=== PATIENT | female | born 1970 | race Two or more races ===

== ENCOUNTER 2024-01-17 11:49 | Emergency (ER) | payer MEDICAID, SELFPAY ==
[2024-01-17 12:07] VITALS: BP 153/80; PULSE 92; RESP 19; TEMP 36.9; O2SAT 98; BMI 34.5
--- NOTE | 2024-01-17 12:22 | XR_ITS ---
Examination: CT abdomen and pelvis without contrast. Coronal 3-D reconstructions. Sagittal 2-D reconstructions. Date and time of exam:January 17, 2024 1236 hours INDICATIONS: Lower pelvic pain beginning 3 days ago CTDI: vol (mGy): 13.1 DLP: (mGycm): 740 Technique: Axial images of the abdomen have been obtained, 3 mm slice thickness Intravenous contrast material has not been administered. Low dose protocols were performed. One or more of the following dose reduction techniques were used; automated exposure control, adjustment of the mA and/or KV according to patient size, use of iterative reconstruction technique. Findings: Diffuse fatty infiltration throughout the liver 15 mm hyperdense right lobe liver lesion No pancreatic or adrenal mass No renal or ureteral calculi, no hydronephrosis Acute diverticulitis descending colon, axial image 127 Acute diverticulitis distal descending colon junction with sigmoid colon axial image 181 Urinary bladder intact IMPRESSION: 15 mm right lobe liver lesion, recommend elective MRI abdomen follow-up pre and postcontrast to assess this liver lesion Foci of acute diverticulitis descending colon, distal descending colon Junction with sigmoid colon, no pelvic abscess
--- NOTE | 2024-01-17 12:22 | PD.EDRME ---
Rapid Medical Screening Exam RME Arrival date/time: 01/17/24 11:49 53-year-old female presents emergency department complaint of abdominal pain and pelvic pain Chief Complaint: Abdominal Pain Time Seen by Provider: 01/17/24 12:13 Vital signs: Vital Signs Temperature 98.5 F 01/17/24 12:07 Pulse Rate 92 01/17/24 12:07 Respiratory Rate 19 01/17/24 12:07 Blood Pressure 153/80 H 01/17/24 12:07 Pulse Oximetry (%) 98 01/17/24 12:07 Oxygen Delivery Method Room Air 01/17/24 12:07
[2024-01-17] MEDS: HYDROcodone/APAP 5/325 TABLET 1 TAB PO (12:42)
[2024-01-17 12:45] LABS: Basophils # (Auto) 0.1 Thou/mm3 (0.0-0.2); Basophils % (Auto) 1 % (0-2.5); Eosinophils # (Auto) 0.1 Thou/mm3 (0.0-0.5); Eosinophils % (Auto) 1 % (0-10); Hematocrit 39.7 % (36.0-46.0); Hemoglobin 12.9 g/dL (12.0-16.0); Immature Granulocytes % (Auto) 0 % (0-0); Immature Granulocytes Auto 0.06 Thou/mm3 (0.00-0.00); Lymphocytes % (Auto) 34 % (10-50); Mean Corpuscular HGB Conc 32.5 g/dl (31.0-37.0); Mean Corpuscular Hemoglobin 26.9 pg (25.0-35.0); Mean Corpuscular Volume 83 fL (80-100); Monocytes # (Auto) 0.8 Thou/mm3 (0.0-0.8); Monocytes % (Auto) 5 % (0-12); Neutrophils # (Auto) 8.7 Thou/mm3 (1.8-7.7); Neutrophils % (Auto) 59 % (37-80); Nucleated Red Blood Cell % 0 /100 WBC (0); Platelet Count 281 Thou/mm3 (140-440); RDW Standard Deviation 41.1 fL (36.4-46.3); White Blood Count 14.6 Thou/mm3 (3.6-11.0)
[2024-01-17 12:59] LABS: Collection Type, Urine Clean Catch
[2024-01-17 13:04] LABS: HCG Qualitative,Urine Negative
[2024-01-17 13:05] LABS: Bilirubin,Urine Negative (Negative); Blood,Urine Negative (Negative); Clarity,Urine Clear (Clear/Hazy); Color,Urine Lt-Yellow (Lt Yel-Yel); Culture Indicated,Urine Not Indicated; Glucose, Urine Negative (Negative); Ketones,Urine Negative (Negative); Leukocyte Esterase,Urine Negative (Negative); Nitrite,Urine Negative (Negative); PH,Urine 5.5 (5.0-7.0); Protein,Urine Negative (Neg - Trace); RBC,Urine 2 /hpf (0-3); Specific Gravity,Urine 1.025 (1.001-1.035); Squamous Epithelial Cell,Urine < 1 /hpf (0-5); Urobilinogen,Urine Negative mg/dL (0.0-1.0); WBC,Urine 1 /hpf (0-5)
[2024-01-17 13:08] LABS: Alanine Aminotransferase 54 U/L (10-49); Albumin, Serum 4.3 gm/dL (3.5-5.0); Albumin/Globulin Ratio 1.4 (1.2-2.2); Alkaline Phosphatase 113 U/L (46-116); Anion Gap 8 (7-16); Aspartate Amino Transferase 27 U/L (0-34); BUN/Creatinine Ratio 18 Ratio (12-20); Bilirubin,Total 0.3 mg/dL (0.3-1.2); Blood Urea Nitrogen 11 mg/dL (9-23); Calcium 9.5 mg/dL (8.3-10.6); Calcium (Corrected) 9.5 mg/dL (8.5-10.1); Carbon Dioxide 26.8 mMol/L (20.0-31.0); Chloride 107 mMol/L (98-107); Creatinine (Component) 0.6 mg/dL (0.6-1.3); Estimated Creatinine Clearance 113.1 mL/min (>60); Glucose 97 mg/dL (74-106); Lipase 40 U/L (12-53); Osmolality,Calculated 282 (275-295); Potassium 4.1 mMol/L (3.4-5.1); Sodium 142 mMol/L (136-145); Total Protein 7.3 gm/dL (5.7-8.2); eGFR > 60 See Note
--- NOTE | 2024-01-17 15:41 | XR_ITS ---
Examination: Transvaginal ultrasound of the pelvis, complete Technique: Transvaginal sonographic images pelvis performed using eller scale imaging Exam date and time: January 17, 2024 1427 hours INDICATIONS: Onset pelvic pain today FINDINGS: Uterus 8.8 x 4.4 x 6.0 cm Diffuse leiomyomatous change no discrete uterine mass Endometrial stripe 0.5 cm Right ovary 1.8 x 1.3 x 1.6 cm arterial flow small follicles Obscured by bowel gas IMPRESSION: No discrete uterine or adnexal mass.
[2024-01-17 16:42] VITALS: BP 148/81; PULSE 84; RESP 20; TEMP 36.7; O2SAT 97
--- NOTE | 2024-01-17 17:50 | EDNOTE_ITS ---
ED General RME/HPI General Chief complaint: Abdominal Pain Stated complaint: LOWER ABD PAIN X 3 DAYS Time Seen by Provider: 01/17/24 12:13 Arrival date/time: 01/17/24 11:49 CC: Low abdominal pain with nausea HPI ongoing for the past week progressive increase in severity nothing at nighttime. Patient denies chest pain shortness of breath difficulty breathing no prior history of similar events. No other complaints localized pain is 4-5 on a 10 scale. RME / HPI RME / HPI narrative: 01/17/24 11:49 53-year-old female presents emergency department complaint of abdominal pain and pelvic pain Related Data Home Medications ?Medication ?Instructions ?Recorded ?Confirmed amoxicillin 500 mg capsule 500 mg PO TID #0 caps 10/31/15 Previous Rx's ?Medication ?Instructions ?Recorded Hydrocodone/Acetaminophen * (NORCO 1 tab PO Q4H PRN PAIN #10 tabs 10/31/15 5/325 *) hydrocodone 5 mg-acetaminophen 325 1 tab PO TID PRN pain #20 tabs 06/15/22 mg tablet lidocaine 5 % topical patch 1 patch topical QDAY #15 ea 06/15/22 ciprofloxacin HCl 500 mg tablet 500 mg PO BID #14 tabs 01/17/24 (Cipro) dicyclomine 20 mg tablet 20 mg PO BID #20 tabs 01/17/24 meloxicam 7.5 mg tablet 7.5 mg PO QDAY #10 tabs 01/17/24 metronidazole 500 mg tablet 500 mg PO BID 7 days #14 tabs 01/17/24 ondansetron 4 mg disintegrating 4 mg PO Q8H #14 tabs 01/17/24 tablet Allergies Allergy/AdvReac Type Severity Reaction Status Date / Time No Known Allergies Allergy Verified 01/17/24 11:49 Review of Systems Review of Systems Narrative Review of Systems: GEN: No fever, no chills, no weight loss EYES: No discharge, no visual changes, no pain HEENT: No ear pain, no congestion, no sore throat PULM: No shortness of breath, no cough, no congestion CV: No chest pain, no dyspnea on exertion, no palpitations GI: No nausea, no vomiting, no diarrhea, + pain, no constipation : No frequency, no urgency, no dysuria MUSC/SKEL: No joint pain, no back pain SKIN: No rash PSYCH: No hallucinations, no depression HEME/LYMPH: No easy bleeding or bruising tendencies NEURO: No weakness, no headache Past Medical History Social History SMOKING STATUS: Never smoker ED Exam Narrative Physical exam: [General: Obese not in any acute distress Head normocephalic HEENT: Within acceptable limits Neck is supple nontender Chest equal chest rise nontender to palpation Respiratory: Clear to auscultation no wheezes crackles or rubs CV: Rate rhythm is regular no murmurs rubs or clicks Abdomen is distended secondary to body habitus soft, left lower quadrant mild tenderness with palpation no reflexive guarding no rebound tenderness no tenderness in all other quadrants. Back: No CVA tenderness no spinous process tenderness from cervical spine thoracic and lumbar spine Skin: Intact no petechiae rash induration ulceration or crepitus Extremities: Moving all extremity against resistance cap refill less than 2 seconds neurosensory intact Neuro: Awake alert oriented x3 Glascow coma 15 no focal deficits] Course Quality Measures none Orders Category Date Time Status CT abdomen pelvis wo con Stat Exams 01/17/24 12:22 Completed US transvaginal Stat Exams 01/17/24 15:41 Completed CBC Stat Lab 01/17/24 12:23 Completed Comprehensive Metabolic Panel Stat Lab 01/17/24 12:23 Completed HCG Qualitative,Urine Stat Lab 01/17/24 12:52 Completed Lipase Stat Lab 01/17/24 12:23 Completed UA, C/S IF [Urinalysis, C/S if Indicated] Stat Lab 01/17/24 12:52 Completed HYDROcodone*/APAP 5/325 [[place] 5/325] Med 01/17/24 12:22 Discontinued 1 tab PO X1 ONE Vital Signs Vital signs: Vital Signs Temperature 98.5 F 01/17/24 12:07 Pulse Rate 92 01/17/24 12:07 Respiratory Rate 19 01/17/24 12:07 Blood Pressure 153/80 H 01/17/24 12:07 Pulse Oximetry (%) 98 01/17/24 12:07 Oxygen Delivery Method Room Air 01/17/24 12:07 [facility] Patient data External records reviewed:: [facility] previous records Clinical information provided by:: patient Social determinants that could affect healthcare access:: none Patient has the following chronic illnesses:: Obesity How is presenting disease/condition affected by chronic disease/condition?: u neffected by Evaluation data The following diagnostics were reviewed and interpreted by me:: lab results and radiology exam(s) Lab and/or radiology exams considered but not ordered:: CBC shows a mild leukocytosis no anemia thrombocytopenia CMP shows no acute electrolyte imbalances renal impairment transaminitis or T. bili elevation Lipase is normal Urine is unremarkable CT shows a liver lesion and diverticulitis Interpretation Summary: Diverticulitis Medications Medications considered but not ordered:: None Medication administrations:: Medication Administration History Discontinued Medications Hydrocodone Bitart/Acetaminophen (Hydrocodone/Apap 5/325 Tablet) 1 tab PO X1 ONE Stop: 01/17/24 12:23 Last Admin: 01/17/24 12:42 Dose: 1 tab Documented By: LP None Consultations Consultation(s) initiated? (list below): No Diagnosis Differential Diagnosis ED Complaint MDM: Diverticulitis ileus obstruction Most likely diagnosis given after review of the tests above:: Diverticulitis Admission Indicated Admission indicated?: not indicated Explain why admission is indicated or not indicated:: Stable for outpatient follow-up Admission Request Was there a request for admission?: No Disposition Plan Disposition Plan: Discharge Discharge Attestation Discharge Attestation: The patient and all family members were given an opportunity to ask questions and understood the discharge instructions. Discharge instructions specifically effects, indications for sooner follow up or return to the emergency department, and the expected course of current diagnosis. Patient condition: Stable Medical Decision Making Differential Diagnosis Differential Diagnosis: Diverticulitis ileus obstruction Lab Data 01/17/24 12:23 01/17/24 12:23 Labs: Lab Results 01/17/24 01/17/24 Range/Units 12:23 12:52 WBC 14.6 H (3.6-11.0) Thou/mm3 RBC 4.80 (4.00-5.20) Miln/mm3 Hgb 12.9 (12.0-16.0) g/dL Hct 39.7 (36.0-46.0) % MCV 83 (80-100) fL MCH 26.9 (25.0-35.0) pg MCHC 32.5 (31.0-37.0) g/dl RDW Std Deviation 41.1 (36.4-46.3) fL Plt Count 281 (140-440) Thou/mm3 Neut % (Auto) 59 (37-80) % Lymph % (Auto) 34 (10-50) % [place] % (Auto) 5 (0-12) % Eos % (Auto) 1 (0-10) % Baso % (Auto) 1 (0-2.5) % Neut # (Auto) 8.7 H (1.8-7.7) Thou/mm3 Lymph # (Auto) 5.0 H (1.0-4.8) Thou/mm3 [place] # (Auto) 0.8 (0.0-0.8) Thou/mm3 Eos # (Auto) 0.1 (0.0-0.5) Thou/mm3 Baso # (Auto) 0.1 (0.0-0.2) Thou/mm3 Immature Gran # (Auto) 0.06 H (0.00-0.00) Thou/mm3 Absolute Nucleated RBC 0.00 (0.00-0.00) Thou/mm3 Immature Gran % 0 (0-0) % Nucleated RBC % 0 (0) /100 WBC Sodium 142 (136-145) mMol/L Potassium 4.1 (3.4-5.1) mMol/L Chloride 107 (98-107) mMol/L Carbon Dioxide 26.8 (20.0-31.0) mMol/L Anion Gap 8 (7-16) BUN 11 (9-23) mg/dL Creatinine 0.6 (0.6-1.3) mg/dL Estim Creat Clear Calc 113.1 (>60) mL/min eGFR > 60 (60 - ) See Note BUN/Creatinine Ratio 18 (12-20) Ratio Glucose 97 (74-106) mg/dL Calculated Osmolality 282 (275-295) Calcium 9.5 (8.3-10.6) mg/dL Corrected Calcium 9.5 (8.5-10.1) mg/dL Total Bilirubin 0.3 (0.3-1.2) mg/dL AST 27 (0-34) U/L ALT 54 H (10-49) U/L Alkaline Phosphatase 113 (46-116) U/L Total Protein 7.3 (5.7-8.2) gm/dL Albumin 4.3 (3.5-5.0) gm/dL Globulin 3.0 (2.3-3.5) gm/dL Albumin/Globulin Ratio 1.4 (1.2-2.2) Lipase 40 (12-53) U/L Ur Collection Type Clean Catch Urine Color Lt-Yellow (Lt Yel-Yel) Urine Clarity Clear (Clear/Hazy) Urine pH 5.5 (5.0-7.0) Ur Specific [place] 1.025 (1.001-1.035) Urine Protein Negative (Neg - Trace) Urine Glucose (UA) Negative (Negative) Urine Ketones Negative (Negative) Urine Blood Negative (Negative) Urine Nitrite Negative (Negative) Urine Bilirubin Negative (Negative) Urine Urobilinogen (Auto) Negative (0.0-1.0) mg/dL Ur Leukocyte Esterase Negative (Negative) Urine RBC 2 (0-3) /hpf Urine WBC 1 (0-5) /hpf Ur Squamous Epith Cells < 1 (0-5) /hpf Urine Bacteria None (None) Ur Culture Indicated? Not Indicated Urine HCG, Qual Negative Discharge Plan Plan Patient Disposition: HOME (Self Care) Patient condition on transfer: Stable Prescriptions/Referrals Prescriptions/Med Rec: New ciprofloxacin HCl [Cipro] 500 mg tablet 500 mg PO BID Qty: 14 0RF metronidazole 500 mg tablet 500 mg PO BID 7 Days Qty: 14 0RF dicyclomine 20 mg tablet 20 mg PO BID Qty: 20 0RF meloxicam 7.5 mg tablet 7.5 mg PO QDAY Qty: 10 0RF ondansetron 4 mg tablet,disintegrating 4 mg PO Q8H Qty: 14 0RF No Action amoxicillin 500 MG capsule 500 mg PO TID Qty: 0 Hydrocodone/Acetaminophen * (NORCO 5/325 *) 1 TAB tablet 1 tab PO Q4H PRN (Reason: PAIN) Qty: 10 0RF Rx Instructions: FOR PAIN hydrocodone-acetaminophen 5-325 mg tablet 1 tab PO TID MDD 3 PRN (Reason: pain) Qty: 20 0RF lidocaine 5 % adhesive patch,medicated 1 patch topical QDAY Qty: 15 0RF Rx Instructions: leave on most painful area for up to 12 hrs Referrals: Daljit Olson MD [Physician] - In 1 week No Primary/Family,Physician [Primary Care Provider] - In 1 week Problem List Clinical Impression: Diverticulitis Patient/Caregiver Discharge Instructions Other Activity Instructions:: Take the medications as prescribed follow-up with your primary care provider if there is a worsening of symptoms return the emergency room medially for further evaluation. Education Materials: ED Diverticulitis Print Language: Brazilian Stand Alone Forms: [employer]upal Award Info., Work/School Release, Patient Portal Info Letter PA/WORK STUDY STUDENT Supervising Physician PA/WORK STUDY STUDENT Supervising Physician: Darrian Castellano ENP
== END 2024-01-17 18:23 | disposition home or self-care (01) ==
PROVIDERS: Nurse Practitioner Primary Care; Emergency Provider Emergency Medicine
DX: K57.32 Diverticulitis of large intestine without perforation or abscess without bleeding (principal); R10.2 Pelvic and perineal pain
CPT/HCPCS: 36415; 74176; 76830; 80053; 81001; 81025; 83690; 85025; 99284; A9270

== ENCOUNTER → 2024-03-04 | Outpatient (CLI) | payer MEDICAID, SELFPAY ==
--- NOTE | 2024-03-04 12:00 | XR_ITS ---
Examination: MRI abdomen with intravenous contrast. MRI abdomen without intravenous contrast. Date and time of exam: March 04, 2024 1330 hrs. Indications: 4 day episode of abdominal pain beginning December 2023, CT abdomen pelvis January 17, 2024 15 mm right lobe liver lesion Technique: Multiple axial, sagittal and coronal sections of the abdomen obtained. Transverse images, TR 6020, TE 107. T1 weighted transverse images, TR 582, TE 9.5. T2-weighted sagittal images, TR 4000, TE 105. T2-weighted sagittal images, TR 4000, TE 5. Coronal images, TR 4210, TE 107. Axial and coronal images are obtained post 18 cc intravenous injection, gadolinium. Findings: Hepatomegaly 24 cm Lateral right lobe mildly hyperintense liver lesion on T2-weighted images, 22 mm, axial image 13 Very subtle enhancement of this lesion on the postcontrast images No gallstones No extrahepatic biliary tract dilatation Spleen is not enlarged No hydronephrosis No ascites Impression: Subtle 22 mm lateral right lobe liver lesion Recommend follow-up CT scan abdomen liver pre and post three-phase intravenous contrast in 3 months
== END | disposition home or self-care (01) ==
PROVIDERS: PCP Nurse Practitioner Family; Referring Provider Nurse Practitioner Family; Visit Provider Nurse Practitioner Family
DX: K76.9 Liver disease, unspecified (principal)
CPT/HCPCS: 74183; A9579

== ENCOUNTER 2024-09-26 08:55 | Day surgery (SDC) | payer MEDICAID, SELFPAY ==
--- NOTE | 2024-09-25 07:00 | EKG_ITS ---
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 [employer]: KASI : 1970 Requested By: Judi Velazquez Order Number: [id number] Reading MD: Judi Velazquez Measurements Intervals Keo Rate: 54 P: 34 MD: 152 QRS: -31 QRSD: 109 T: 6 QT: 444 QTc: 422 Interpretive Statements SINUS BRADYCARDIA MARKED LEFT AXIS DEVIATION [QRS AXIS < -30] LOW QRS VOLTAGE IN PRECORDIAL LEADS [QRS DEFLECTION < 1.0 mV IN CHEST LEADS] PATTERN CONSISTENT WITH PULMONARY DISEASE INCOMPLETE RIGHT BUNDLE BRANCH BLOCK [90+ ms QRS DURATION, TERMINAL R IN V1/V2, 40+ ms S IN I/aVL/V4/V5/V6] MODERATE VOLTAGE CRITERIA FOR LVH, CONSIDER NORMAL VARIANT [MEETS CRITERIA IN ONE OF: R(aVL), S(V1), R(V5), R(V5/V6)+S(V1)] Compared to ECG 12/30/2021 18:24:47 Sinus rhythm no longer present Myocardial infarct finding no longer present /store/S0/[id number]/ecg/[id number].pdf
[2024-09-25 08:56] VITALS: BMI 43.0
[2024-09-25 10:37] LABS: Basophils # (Auto) 0.1 Thou/mm3 (0.0-0.2); Basophils % (Auto) 1 % (0-2.5); Eosinophils # (Auto) 0.2 Thou/mm3 (0.0-0.5); Eosinophils % (Auto) 1 % (0-10); Hematocrit 40.9 % (36.0-46.0); Hemoglobin 12.7 g/dL (12.0-16.0); Immature Granulocytes Auto 0.02 Thou/mm3 (0.00-0.00); Lymphocytes # (Auto) 4.5 Thou/mm3 (1.0-4.8); Lymphocytes % (Auto) 41 % (10-50); Mean Corpuscular HGB Conc 31.1 g/dl (31.0-37.0); Mean Corpuscular Hemoglobin 26.6 pg (25.0-35.0); Mean Corpuscular Volume 86 fL (80-100); Monocytes # (Auto) 0.6 Thou/mm3 (0.0-0.8); Monocytes % (Auto) 6 % (0-12); Neutrophils # (Auto) 5.5 Thou/mm3 (1.8-7.7); Neutrophils % (Auto) 50 % (37-80); Nucleated Red Blood Cell # 0.00 Thou/mm3 (0.00-0.00); Nucleated Red Blood Cell % 0 /100 WBC (0); Platelet Count 244 Thou/mm3 (140-440); RDW Standard Deviation 46.0 fL (36.4-46.3); Red Blood Count 4.78 Miln/mm3 (4.00-5.20); White Blood Count 10.9 Thou/mm3 (3.6-11.0)
[2024-09-25 11:00] LABS: Alanine Aminotransferase 43 U/L (10-49); Albumin, Serum 4.4 gm/dL (3.5-5.0); Albumin/Globulin Ratio 1.6 (1.2-2.2); Alkaline Phosphatase 90 U/L (46-116); Anion Gap 12 (7-16); Aspartate Amino Transferase 34 U/L (0-34); BUN/Creatinine Ratio 19 Ratio (12-20); Bilirubin,Total 0.4 mg/dL (0.3-1.2); Blood Urea Nitrogen 13 mg/dL (9-23); Calcium 9.7 mg/dL (8.3-10.6); Calcium (Corrected) 9.7 mg/dL (8.5-10.1); Carbon Dioxide 26.3 mMol/L (20.0-31.0); Chloride 108 mMol/L (98-107); Creatinine (Component) 0.7 mg/dL (0.6-1.3); Estimated Creatinine Clearance 101.3 mL/min (>60); Globulin 2.8 gm/dL (2.3-3.5); Glucose 112 mg/dL (74-106); Osmolality,Calculated 291 (275-295); Potassium 3.4 mMol/L (3.4-5.1); Sodium 146 mMol/L (136-145); Total Protein 7.2 gm/dL (5.7-8.2); eGFR > 60 See Note
--- NOTE | 2024-09-25 14:51 | SUR.PREOP ---
Voice message in pt's box and son's box to bring pt at 0900 tomorrow for surgery.
[2024-09-26] VITALS (10 sets, daily range): BP systolic 140–158; BP diastolic 68–85; PULSE 50–81; RESP 13–62; TEMP 36.3–36.9; O2SAT 95–100; BMI 45.3
[2024-09-26] MEDS: RINGERS LACTATED 1000 ML 1,000 ML 20 ML IV (09:25)
[2024-09-26 09:56] LABS: HCG Qualitative,Urine Negative
--- NOTE | 2024-09-26 10:48 | ESOP_ITS ---
Date of Procedure 09/26/24 Pre Op Diagnosis Symptomatic cholelithiasis Post Op Diagnosis Cholelithiasis with cholecystitis Fatty liver Procedure Laparoscopic cholecystectomy Findings Moderately distended gallbladder with gallbladder sludge and small stones and chronic cholecystitis. Mildly enlarged liver fatty in appearance Procedure Description Patient was brought into the operating room in supine position. After administration of general endotracheal anesthesia abdomen was prepped and draped in standard surgical manner. A Veress needle was inserted through the umbilicus and pneumoperitoneum was obtained up to 15 mmHg. The Veress needle was then removed, a 5 mm infraumbilical incision was made and the 5mm trocar was inserted. Laparoscopic camera was placed. Under direct visualization a laparoscopic camera a 10 mm trocar was placed in subxiphoid and two 5 mm trocars placed in right upper quadrant. The liver was mildly enlarged and fatty in appearance. The gallbladder was identified and was noted to be moderately distended with chronic cholecystitis. It was retracted cephalad and laterally. Dissection started near the infundibulum of gallbladder where cystic duct and gallbladder junction clearly identified. The cystic duct was circumferentially dissected off the peritoneum and surrounding inflammatory tissue. The critical view of safety was clearly demonstrated. Cystic duct was then divided between 2 endoclips proximally and one distally. The cystic artery was similarly dissected and divided. The gallbladder was then from the liver bed using electrocautery. The gallbladder was then placed inside an Endo Catch and removed from the abdomen utilizing subxiphoid trocar site. The area was paste up copy camera operator iously and thoroughly washed and irrigated, all the fluid was suctioned and the suction fluid returned clear. Hemostasis achieved using electrocautery. Endoclips noted be in place and intact without any bleeding or any leakage. Hemostasis was adequate and satisfactory. The subxiphoid trocar sites fascial defect was closed with 0 Vicryl using Endo Closure device. Instruments and trocars removed, pneumoperitoneum was evacuated and the incisions closed with 4- 0 Monocryl in subcuticular fashion. Instrument needle and sponge counts were all reported to be correct X2. Patient tolerated the procedure well, was extubated, breathing spontaneously and without difficulty and was transferred to postanesthesia care in stable condition. The gallbladder was opened on the back table, there was significant amount of gallbladder sludge and small stones. Anesthesia GETA and local Pathology / specimen Other (Gallbladder and contents) Estimated Blood Loss 10 Condition Stable Disposition PACU Surgeon uJdi Velazquez MD Surgical Staff Operation Date: 09/26/24 11:15 Case Staff Anesthesiologist: Omi Camargo RN First Assistant: Mery Washington
--- NOTE | 2024-09-26 10:48 | SUR.PHASEI ---
1048 Patient arrived to recovery resting comfortably in [facility], on oxygen 7L via oxy mask with an oral airway in place, breathing unlabored, vital signs stable, dressing intact to abdomen; dermabond, no bleeding noted, report received from Jacklyn VASQUEZ and Cheko MONTANEZ/Dr. Camargo
--- NOTE | 2024-09-26 11:24 | SUR.PHASEII ---
1124 Dr. Camargo made aware patient having pain 5/10, verbal order read-back received from Fentanyl 50mg IVP PRN for pain scale 4-10, will place order in EMR and administer per anesthesia order
[2024-09-26] MEDS: fentaNYL CIT INJ 50 mCg/ML AMP 2ML IVP (11:34)
--- NOTE | 2024-09-26 11:43 | SUR.PHASEII ---
1135 Dr. Camargo at bedside, made aware patients heart dropping to 48- 49 bpm momentarily then bounces back in 50's bpm, Dr. Camargo states that's ok, no new orders received. 1143 Dr. Camargo at [facility], made aware patients heart dropping to 45-48 bpm momentarily then remains in the 50s bpm, Dr. Camargo states that's ok, her blood pressure is good, I'm ok with that heart rate like that, no new orders at this time, will continue to monitor patient
--- NOTE | 2024-09-26 11:59 | SUR.PHASEII ---
patient unable to contact her family, attempting to call several times
--- NOTE | 2024-09-26 12:29 | SUR.PHASEII ---
1229 Patient meets discharge criteria from recovery, awake and alert, breathing unlabored, vital signs stable, dressing intact; no bleeding noted, per patient her pain is tolerable, drinking 7up; denies nausea, patient assisted with dressing into her clothing by this flex o writer operator, discharge instructions given over the phone on speaker phone to patient and patients son with the assistance of the telephone commercial baking teacher Anuel ID# [id number], patients son signed discharge instructions at car side, patient given all her belongings prior to discharge, transported via wheelchair and left in a private vehicle.
== END 2024-09-26 12:29 | disposition home or self-care (01) ==
PROVIDERS: Anesthesiology; Absent Provider Surgery; PCP Nurse Practitioner Family; Referring Provider Surgery; Visit Provider Surgery
PROC: 0FT44ZZ Resection of Gallbladder, Percutaneous Endoscopic Approach (ICD-10-PCS; CPT 47562; principal; 2024-09-26 11:15)
DX: K80.10 Calculus of gallbladder with chronic cholecystitis without obstruction (principal); K76.0 Fatty (change of) liver, not elsewhere classified; E11.9 Type 2 diabetes mellitus without complications; Z01.810 Encounter for preprocedural cardiovascular examination
CPT/HCPCS: 47562; 36415; 80053; 81025; 85025; 93005; A4217; A4649; J0131; J0694; J1100; J2250; J2405; J2704; J3010; J3490; J7120

== ENCOUNTER 2024-12-25 08:39 | Outpatient (RCR) | payer MEDICAID, SELFPAY ==
--- NOTE | 2024-12-25 09:19 | PTNOTE_ITS ---
PT OP Initial Eval Patient Information Outpatient Physical Therapy Treatment Date: 12/25/24 Visit Reasons: Pain in left knee Medical Diagnosis: M25.562 M17.12 Treatment Dx #1: L knee pain Start of Care: 12/25/24 Date of Onset: 2 yrs ago Smoking Status Smoking Status: Former smoker Years smoked: 8 Initial Assessment Subjective: Pt is 54 yr old kyrgyz speaking female who c/o L knee pain that starts in the low back and runs down the posterolateral thigh to the heel and causes pain in the heel when she walks. PMH: OA, LBP Imaging: Xray of L knee from 2022 was negative for FX Pt goal: to get rid of the pain to walk better. Objective: L knee ArOM: Extension: -5 deg Flexion: 90 deg SLR: 65 deg Henrry's: positive Varus stress: positive with ++ pain TTP: mod/high of lateral knee Gait: antalgic Assessment: Pt presents with L knee rotation sensitivity, varus gapping and decreased ROM into flexion and extension consistent with OA and lumbar radiculopathy. The lateral knee pain may have a radicular component from the L/S. Pt may benefit from skilled therapy and has poor/fair rehab potential. PT recommends further diagnostic imaging of L/S such as MRI and therapy order that includes LBP. Short Term and [facility] Goals 1. Ind with HEP 2. Improved knee extension ROM to full and flexion to 115 deg 3. Pt will ambulate with symmetrical pattern x community distances with <=3/10 L knee pain. Treatment Plan ? 1. Manual therapy ? 2. Therex ? 3. Modalities as indicated, moist heat, ice, estim Frequency and Duration: 1-2x a week for 3 trial visits, if progressing continue up to 12 visits plus the evaluation Certification Dates: 12/25/24 to 02/22/25 Procedure Charges OP PT Eval Mod Complex 30 minutes: Yes
== END 2024-12-29 23:59 | disposition home or self-care (01) ==
LOC: CPTX 08:39
PROVIDERS: PCP Physician Assistant; Referring Provider Physician Assistant; Visit Provider Physician Assistant
DX: M25.562 Pain in left knee (principal); M54.50 Low back pain, unspecified
CPT/HCPCS: 97162

== ENCOUNTER 2025-01-04 16:45 | Outpatient (RCR) | payer MEDICAID, SELFPAY ==
--- NOTE | 2025-01-04 17:21 | PT.ODAYNRPT ---
PT Outpatient Daily Note OP Daily Note Outpatient Physical Therapy Treatment Date: 01/04/25 Visit Reasons: PAIN IN LEFT KNEE Subjective: Same as time of evaluation Objective: See F/S for therex Assessment: Moderate tissue irritability limits L knee flexion ROM to about 90 deg Plan: Continue per POC Length of Time (minutes) of Treatment: 30 Minutes Procedure Charges Therapeutic Exercise 30 minutes: Yes
== END 2025-01-28 23:59 | disposition home or self-care (01) ==
LOC: CPTX 16:45
PROVIDERS: PCP Physician Assistant; Referring Provider Physician Assistant; Visit Provider Physician Assistant
DX: M25.562 Pain in left knee (principal); M17.12 Unilateral primary osteoarthritis, left knee
CPT/HCPCS: 97110

== ENCOUNTER 2025-02-05 12:52 | Outpatient (RCR) | payer MEDICAID, SELFPAY ==
--- NOTE | 2025-02-05 14:32 | PT.ODAYNRPT ---
PT Outpatient Daily Note OP Daily Note Outpatient Physical Therapy Treatment Date: 02/05/25 Visit Reasons: Pain in left knee Subjective: Continued L knee pain worse with the cold Objective: See F/S for therex Assessment: Moderate tissue irritability limits L knee flexion ROM to about 90 deg Plan: Continue per POC Length of Time (minutes) of Treatment: 30 Minutes Procedure Charges Therapeutic Exercise 30 minutes: Yes
== END 2025-02-28 23:59 | disposition home or self-care (01) ==
LOC: CPTX 12:52
PROVIDERS: PCP Physician Assistant; Referring Provider Physician Assistant; Visit Provider Physician Assistant
DX: M25.562 Pain in left knee (principal); M17.12 Unilateral primary osteoarthritis, left knee
CPT/HCPCS: 97110